=== PATIENT | male | born 1960 | race Caucasian/White ===

== ENCOUNTER 2020-07-31 16:55 | Emergency (ER) | payer OTHER, SELFPAY ==
--- NOTE | 2020-07-31 | CT_ITS ---
EXAMINATION: CT HEAD WITHOUT CONTRAST CLINICAL INFORMATION: Hearing loss COMPARISON: None TECHNIQUE: Contiguous axial imaging was performed from the skull base to vertex without intravenous administration of contrast. This CT examination was performed using dose optimization techniques as appropriate, variously including the following: *Automated exposure control *Adjustment of mA and/or kV according to patient size (this includes techniques or standardized protocols for targeted exams where dose is matched to indication/reason for exam; i.e. extremities or head) *Use of iterative reconstruction technique DLP: 896 mGy-cm FINDINGS: There is no evidence of acute intracranial hemorrhage or territorial infarction. No abnormal mass effect or midline shift is seen. Mathews to white matter differentiation is well preserved. No extra-axial fluid collections are identified. The ventricles are normal in size. There is no abnormal attenuation within the brain parenchyma. The osseous structures and soft tissues are normal. The mastoid air cells and visualized portions of the paranasal sinuses are well aerated. IMPRESSION: No acute intracranial pathology.
--- NOTE | 2020-07-31 | CT_ITS ---
EXAMINATION: CT ANGIOGRAM HEAD CT ANGIOGRAM NECK CLINICAL INFORMATION: Hearing loss. COMPARISON: CT head from 07/31/2020. TECHNIQUE: Initial noncontrast stock speculator imaging of the head and neck was performed. Comparison is made with noncontrast head CT from earlier today. Test bolus sequences followed by intravenous administration 70 mL of Omnipaque 350. Helical imaging was performed in the axial plane from the aortic arch to the skull vertex. Delayed postcontrast imaging of the head was also performed. The data was processed at the certified cytotechnologist's workstation for generation of MIP sequences. Angled MIPs and volume rendered reformatted images were also generated at an offline 3D workstation. Stenoses are assessed in accordance with NASCET criteria unless otherwise indicated. DLP: 1706 mGy-cm This CT examination was performed using dose optimization techniques as appropriate, variously including the following: *Automated exposure control. *Adjustment of mA and/or kV according to patient size (this includes techniques or standardized protocols for targeted exams where dose is matched to indication/reason for exam; i.e. extremities or head). *Use of iterative reconstruction technique. FINDINGS: CT Head: There is no evidence of acute intracranial hemorrhage or edematous territorial infarction. A few foci of hypoattenuation in the periventricular and deep white matter are consistent with mild microangiopathy. Mathews-white matter differentiation is preserved. The ventricles are normal in size and configuration. No evidence for obstructive hydrocephalus. No abnormal mass effect or midline shift. No extra-axial fluid collections. No pathologic intra-axial enhancement or regional oligemia. No acute osseous abnormalities. A heterogeneous, spiculated subcutaneous lesion on the left posterior aspect of the occiput is nonspecific, measuring 3.7 x 1.5 x 3.8 cm. There is no definitively demonstrated enhancement of this structure comparing the previous noncontrast head CT [address] The mastoid air cells, middle ear cavities, and paranasal sinuses are clear. The external auditory canals are normal in appearance. No demonstrated abnormalities of the ossicular chains. No demonstrated abnormalities of the labyrinthine structures. CT Neck: There is a 1.2 cm peripherally calcified hypoattenuating nodule in the right thyroid lobe. The remaining cervical soft tissues are within normal limits. Moderate multilevel degenerative spondyloarthropathy of the cervical spine. Osseous fusion of the left-sided C3-C4 facets. There is moderate degenerative disc disease from C4-C7 with prominent bridging anterior osteophytosis. 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 No demonstrated suspicious lytic or sclerotic osseous lesions. CT Upper Chest: The visualized lung apices and upper mediastinum are within normal limits. Neck CTA: Aortic Arch: Normal contour and caliber. Classic 3 vessel branching pattern of the aortic arch. Great Vessel Origins: No significant stenosis of the branch origins. Right Common Carotid Artery: Normal opacification without focal stenosis or occlusion. Cervical Right Internal Carotid Artery: Mild calcific atherosclerotic disease of the carotid bulb and proximal internal carotid artery without flow-limiting stenosis. Left Common Carotid Artery: Normal opacification without focal stenosis or occlusion. Cervical Left Internal Carotid Artery: Mild calcific atherosclerotic disease of the carotid bulb and proximal internal carotid artery without flow-limiting stenosis. Cervical Right Vertebral Artery: The right vertebral artery is diminutive from its origin with concomitant decreased caliber of the foramina transversarium. Otherwise, normal opacification without focal stenosis or occlusion. Cervical Left Vertebral Artery: Dominant. Normal opacification without focal stenosis or occlusion. Brain CTA: Intracranial Internal Carotid Arteries: Calcific atherosclerotic disease of the intracranial internal carotid arteries without occlusion or flow-limiting stenosis. Otherwise, normal contrast opacification of the petrous, cavernous, paraophthalmic, and supraclinoid segments of the internal carotid arteries without focal stenosis. Right Anterior Cerebral Artery: Normal A1 segment. Normal opacification of the distal segments of the [place]IA[place]. Left Anterior Cerebral Artery: Normal A1 segment. Normal opacification of the distal segments of the ORIANA. Anterior Communicating Artery: Normal. Right Middle Cerebral Artery: Normal opacification of the M1 segment of the MCA without focal stenosis or occlusion. Normal arborization of the distal segments. Left Middle Cerebral Artery: Normal opacification of the M1 segment of the MCA without focal stenosis or occlusion. Normal arborization of the distal segments. Right Vertebral Artery: A diminutive V4 segment largely terminates as the posterior inferior cerebellar artery. Left Vertebral Artery: Normal opacification of the V4 segment. Normal opacification of the proximal segments of the posterior inferior cerebellar artery. Basilar Artery: Normal opacification without focal stenosis or occlusion. Normal appearance of the proximal superior cerebellar arteries. Right Posterior Cerebral Artery: The P1 segment is diminutive. origin of the HAND LAMINATOR with robust opacification of the posterior communicating artery. Normal opacification of the distal segments of the HAND LAMINATOR. Left Posterior Cerebral Artery: Normal P1 segment. Normal posterior communicating artery. Normal opacification of the distal segments of the HAND LAMINATOR. Normal opacification of the superior sagittal, straight, transverse, and sigmoid sinuses. IMPRESSION: 1. No evidence of acute intracranial hemorrhage or edematous territorial infarction. 2. CTA of the head and neck without proximal occlusion or flow-limiting stenosis. 3. No demonstrated abnormalities of the temporal bones to explain the patient's hearing loss. 4. Nonspecific spiculated lesion within the subcutaneous tissues along the left aspect of the occiput. This may represent chronic scarring or a fibrous fascial-based lesion. However, neoplastic soft tissue lesions are not excluded. Recommend correlation with chronicity and any history of prior surgery in this location. Otherwise, ultrasound or MRI may provide further tissue characterization if clinically indicated.
[2020-07-31 18:30] VITALS: BP 172/96; PULSE 80; RESP 18; TEMP 36.2; O2SAT 99; BMI 32.2
--- NOTE | 2020-07-31 20:24 | ED_ITS ---
HPI - General Adult General Chief complaint: Ear Problems Stated complaint: HEARING LOSS Time Seen by Provider: 07/31/20 20:00 Source: patient Mode of arrival: ambulatory History of Present Illness HPI narrative: patient states woke up this morning approximately greater than 12 hours ago, and stated had complete hearing loss on the left ear and partial hearing loss on the right. Patient denies any head trauma denies weakness or numbness to all extremities denies change in vision denies slurred speech. Patient denies chest pain or shortness of breath denies abdominal pain. Patient states call the primary care doctor and referred to come into the emergency department Related Data Previous Rx's Medication Instructions Recorded prednisone 60 mg PO DAILY 10 Days #30 tab 07/31/20 Allergies Allergy/AdvReac Type Severity Reaction Status Date / Time No Known Allergies Allergy Verified 07/31/20 18:30 Review of Systems Constitutional: Comments: Constitutional : No Weight loss, No Fever, No Chills, No Night Sweats, No Fatigue, No Malaise ENT/Mouth : No Hearing loss, No Ear Pain, No Nasal Congestion, No Sinus Pain, No Hoarseness, No sore throat, No Rhinorrhea, No Swallowing Difficulty positive for hearing loss in the left mildly on the right Eyes: No Eye Pain, No Swelling, No Redness, No Foreign Body, No Discharge, No Vision Changes Cardiovascular : No Chest Pain, No SOB, No Dyspnea on Exertion, No Orthopnea, No Edema, No Palpitations Respiratory : No Cough, No Sputum, No Wheezing, No Smoke Exposure, No Dyspnea Gastrointestinal : No Nausea, No Vomiting, No Diarrhea, No Constipation, No abdominal Pain, No Hematochezia, No Melena Genitourinary : no irregular bleeding, No Dysuria, No Urinary Frequency, No Hem aturia, No Urinary Incontinence, No Urgency, No Flank Pain, No Urinary Flow Changes, No Hesitancy Musculoskeletal : No joint pain, No Myalgias, No Joint Swelling Skin : No Skin Lesions, No rash Neuro : No Weakness, No Numbness, No Paresthesias, No Loss of Consciousness, No Dizziness, No Headache Psych : No Anxiety/Panic, No Depression, No SI/HI/AH/VH, No Social Issues, Heme/Lymph: No Bruising, No Bleeding,No Lymphadenopathy Endocrine : No Polyuria, No Polydipsia, No Temperature Intolerance Neurologic: Reports Abnormal speech present and Denies confusion Psychiatric: Psychiatric: Denies confusion [facility] Past Medical History Medical History Hyperlipidemia Hypertension Urinary bladder disorder Family History Family History (Updated 07/31/20 @ 22:46 by Josh Kruger DO) Other Patient denies having any allergies Patient denies medical problems Social History Social History Alcohol intake: never Smoking Status: Never smoker Use of substances other than those prescribed or required for medical reasons: No Advance Directives: No Advance Directives Information Provided: Yes Physical Exam Vital Signs and I&O and Narrative: Vital Signs and I&O: Vital Signs Temp 98.0 F 08/01/20 00:00 Pulse 68 08/01/20 00:00 Resp 20 08/01/20 00:00 BP 132/70 08/01/20 00:00 Pulse Ox 99 08/01/20 00:00 Intake & Output 07/31/20 07/31/20 08/01/20 06:59 18:59 06:59 Weight 102 kg Body Mass Index 32.2 I reviewed vital signs Const: Other: Appearance: Alert. Oriented X3. No acute distress. Eyes: Pupils equal, round and reactive to light. ENT: Pharynx normal. Neck: Normal inspection. Neck supple. CVS: Normal heart rate and rhythm. Pulses normal. Respiratory: No respiratory distress. Breath sounds normal. Abdomen: Soft and nontender. Skin: Skin warm and dry. Normal skin color. Normal skin turgor. Extremities: No lower extremity edema. No lower extremity edema. Neuro: Oriented X 3. No motor deficit. No sensory deficit. General: No confusion Orientation/consciousness: oriented to person and No confusion Neuro: General: oriented to person and No confusion Cranial nerves: Yes C N's II-XII intact bilaterally Cognition (Neuro): normal cognition Speech: Abnormal speech present Gait exam (Neuro): Normal gait present Motor exam (neuro): 5/5 motor strength present throughout Coordination: [id number] test normal Pupils: Normal pupillary reactivity/response: bilateral Course Course Course Narrative: I perform a rinnes and webers test + sensorineal Test my differential includes a stroke otitis media. However at this point patient does not meet criteria for tPA secondary to prolonged time greater than 12 hours I discussed with patient CAT scan results what abnormality to the skin area of the occiput however patient did state he had surgery there with a lipoma. I did discuss results with patient and how important it is to follow-up with primary care doctor for further evaluation. Do not feel that the patient has acute stroke at this point. I will place patient on steroids Medical Decision Making MDM Narrative Medical decision making narrative: 59-year-old male with senorineural hearing loss, left greater than right. CT scan of the head and CT of the head negative. Will start on p.o. steroids. Normal neuro exam Lab Data Result diagrams: 07/31/20 20:51 07/31/20 20:51 Labs: Lab Results 07/31/20 07/31/20 Range/Units 20:51 20:51 WBC 8.4 (4.8-10.8) X10*3/uL RBC 4.58 L (4.60-5.80) X10*6/uL Hgb 14.0 (14.0-18.0) g/dl Hct 41.1 L (42-52) % MCV 89.7 (80-98) fL MCH 30.6 (27.0-33.0) pg MCHC 34.1 (31.0-36.0) g/dl RDW 12.5 (11.0-16.0) % Plt Count 223 (160-400) X10*3/uL MPV 9.5 (9.4-12.4) fL Immature Gran % (Auto) 0.2 (0.0-0.4) % Neut % (Auto) 57.7 (45-73) % Lymph % (Auto) 30.0 (20-40) % [place] % (Auto) 8.5 (2-11) % Eos % (Auto) 2.8 (0-4) % Baso % (Auto) 0.8 (0-2) % Lymph # (Auto) 2.5 (1.2-4.9) X10*3/uL [place] # (Auto) 0.7 (0.1-1.2) X10*3/uL Eos # (Auto) 0.2 (0.0-0.4) X10*3/uL Baso # (Auto) 0.1 (0.0-0.2) X10*3/uL Abs Immat Gran (auto) 0.02 (0.00-0.03) X10*3/uL Absolute Neuts (auto) 4.8 (2.0-8.3) X10*3/uL Absolute Nucleated RBC 0.000 (0.0-0.012) X10*3/uL Nucleated RBC % (auto) 0.0 (0.0-0.2) /100WBC Sodium 138 (135-145) mmol/L Potassium 4.2 (3.3-5.1) mmol/l Chloride 104 (96-108) mmol/L Carbon Dioxide 26 (22-29) mmol/L Anion Gap 12 (12-20) BUN 12 (9-16) mg/dL Creatinine 1.11 (0.5-1.4) mg/dL Estim Creat Clear Calc 83.6 Estimated GFR > 60 Random Glucose 120 H (60-115) mg/dL Calcium 8.9 (8.4-10.2) mg/dL Discharge Plan Discharge Clinical Impression: Hearing loss Qualifiers: Hearing loss type: sensorineural Qualified Code(s): H90.3 - Sensorineural hearing loss, bilateral Patient Disposition: Home, Self-Care Instructions: Hearing Loss (ED) Additional Instructions: Thank you for visiting the emergency department today. If your symptoms worsen or do not resolve completely please return to the emergency department immediately or call 911. if he have any questions please call your primary care physician Prescriptions: New prednisone 20 mg tablet 60 mg PO DAILY 10 Days Qty: 30 RF: 0 Interventions: ED Discharge Assessment Last Done: 08/01/20 00:25 Discharge Date/Time: 08/01/20 00:27
[2020-07-31 20:25] VITALS: BP 153/86; PULSE 62; RESP 18; TEMP 36.8; O2SAT 97
[2020-07-31 20:55] LABS: MANUAL DIFF FLAG NO
[2020-07-31 20:59] LABS: Basophils Absolute Auto 0.1 X10*3/uL (0.0-0.2); Basophils Percent Auto 0.8 % (0-2); Eosinophils Absolute Auto 0.2 X10*3/uL (0.0-0.4); Eosinophils Percent Auto 2.8 % (0-4); Hematocrit 41.1 % (42-52); Imm Gran Abs Auto 0.02 X10*3/uL (0.00-0.03); Imm Gran Pct Auto 0.2 % (0.0-0.4); Lymphocytes Absolute Auto 2.5 X10*3/uL (1.2-4.9); Mean Corpuscular HGB Conc 34.1 g/dl (31.0-36.0); Mean Corpuscular Hemoglobin 30.6 pg (27.0-33.0); Mean Corpuscular Volume 89.7 fL (80-98); Mean Platelet Volume 9.5 fL (9.4-12.4); Monocytes Absolute Auto 0.7 X10*3/uL (0.1-1.2); Monocytes Percent Auto 8.5 % (2-11); Neutrophils Absolute Auto 4.8 X10*3/uL (2.0-8.3); Neutrophils Percent Auto 57.7 % (45-73); Platelet Count 223 X10*3/uL (160-400); Red Blood Count 4.58 X10*6/uL (4.60-5.80); Red Cell Distribution Width 12.5 % (11.0-16.0); White Blood Count 8.4 X10*3/uL (4.8-10.8)
[2020-07-31 21:16] LABS: Anion Gap 12 (12-20); Blood Urea Nitrogen 12 mg/dL (9-16); Calcium 8.9 mg/dL (8.4-10.2); Carbon Dioxide 26 mmol/L (22-29); Chloride 104 mmol/L (96-108); Creatinine Clr Calc Pharmacy 83.6; Estimated Glomerular Filt Rate > 60; Glucose Random 120 mg/dL (60-115); Potassium 4.2 mmol/l (3.3-5.1); Sodium 138 mmol/L (135-145)
[2020-07-31] MEDS: iohexoL 350 MG/ML 100 ML INFUS..BTL IV (21:50)
[2020-08-01] VITALS: BP 132/70; PULSE 68; RESP 20; TEMP 36.7; O2SAT 99
[2020-08-01] MEDS: predniSONE 20 MG TABLET 60 MG PO (00:10)
== END 2020-08-01 00:27 | disposition home or self-care (01) ==
PROVIDERS: Emergency Provider Emergency Medicine
DX: H90.3 Sensorineural hearing loss, bilateral (principal); I10 Essential (primary) hypertension; E78.5 Hyperlipidemia, unspecified
CPT/HCPCS: 36415; 70450; 70496; 70498; 80048; 85025; 99284